=== PATIENT | male | born 1990 | race Caucasian/White ===

== ENCOUNTER 2017-12-02 14:47 | Inpatient (IN) | payer OTHER ==
[2017-12-02 14:55] VITALS: BMI 31.4
--- NOTE | 2017-12-02 15:10 | HP ---
CIWA Score - CIWA Score Nausea/Vomitin Muscle Tremors: 3 Anxiety: 3 Agitation: 3 Paroxysmal Sweats: 2 Orientation: 0-Oriented Tacttile Disturbances: 2-Mild Itch/Numbness/Burn Auditory Disturbances: 2-Mild Harshness/Frighten Visual Disturbances: 0-None Headache: 2-Mild CIWA-Ar Total Score: 20 Admission ROS [facility] - HPI Chief Complaint: I NEED HELP TO STOP USING XANAX,ALSO HEROIN DEPENDENCE,MARIJUANA DEPENDENCE, MMTP 65 MGS/DAY,LAST MEDICATED TODAY, SEIZURE WITHDRAWAL LAST 2015 NICOTINE DEPENDENCE DEPRESSION HISTORY OF HYPOTHYROIDISM AT [facility] DID NOT TAKE MEDICATION FOR 20 YEARS LOW BACK PAIN LONGES PERIOD OF SOBRIETY 7 MONTHS Allergies/Adverse Reactions: Allergies Allergy/AdvReac Type Severity Reaction Status Date / Time No Known Allergies Allergy Verified 12/02/17 15:00 History of Present Illness: THIS 27 YEARS OLD MALE WITH XANAX,MARIJUANA DEPENDENCE,ALSO HEROIN ABUSED,ON MMTP 65 MGS/DAY,LAST MEDICATE TODAY FOR DETOX MENTIONED Exam Limitations: No Limitations - Ebola screening Have you traveled outside of the country in the last 21 days: No Have you had contact with anyone from an Ebola affected area: No Have you been sick,other than usual withdrawal symptoms: No Do you have a fever: No - Review of Systems Constitutional: Chills, Loss of Appetite, Malaise, Night Sweats, Changes in sleep, Weakness EENT: reports: Tearing, Nose Congestion Respiratory: reports: No Symptoms reported Cardiac: reports: No Symptoms Reported GI: reports: Diarrhea, Nausea, Vomiting, Abdominal cramping : reports: No Symptoms Reported Musculoskeletal: reports: Back Pain, Joint Pain, Muscle Pain, Joint Stiffness Integumentary: reports: Dryness Neuro: reports: Headache, Tremors Endocrine: reports: No Symptoms Reported Hematology: reports: No Symptoms Reported Psychiatric: reports: No Sypmtoms Reported, Judgement Intact, Mood/Affect Appropiate, Anxious, Depressed Patient History - Patient Medical History Hx Anemia: No Hx Asthma: No Hx Chronic Obstructive Pulmonary Disease (COPD): No Hx Cancer: No Hx Cardiac Disorders: No Hx Congestive Heart Failure: No Hx Hypertension: No Hx Hypercholesterolemia: No Hx Pacemaker: No HX Cerebrovascular Accident: No Hx Seizures: Yes (WITHDRAWAL 2015) Hx Dementia: No Hx Diabetes: No Hx Gastrointestinal Disorders: No Hx Liver Disease: No Hx Genitourinary Disorders: No Hx Sexually Transmitted Disorders: No Hx Renal Disease (ESRD): No Hx Thyroid Disease: Yes (HYPOTHYROIDISM AT CHILDHOOD) Hx Human Immunodeficiency Virus (HIV): No (LAST 05/25 NEGATIVE) Hx Hepatitis C: No Hx Depression: Yes Hx Suicide Attempt: No Hx Bipolar Disorder: No Hx Schizophrenia: No Other Medical History: NO SUICIDAL,NO HOMICIDAL - Patient Surgical History Past Surgical History: No - PPD History Previous Implant?: Yes Documented Results: Positive w/o proof Implanted On Prior R Admission?: No PPD to be Administered?: No - Smoking Cessation Smoking history: Current every day smoker Have you smoked in the past 12 months: Yes Aproximately how many cigarettes per day: 10 Cigars Per Day: 0 Hx Chewing Tobacco Use: No Initiated information on smoking cessation: Yes 'Breaking Loose' booklet given: 12/02/17 - Substance & Tx. History Hx Alcohol Use: No Hx Substance Use: Yes Substance Use Type: Heroin, Marijuana, Tranquilizers Hx Substance Use Treatment: Yes (05/25 [facility]) - Substances Abused Alprazolam (Xanax) Route: Oral Frequency: Daily Amount used: 4-5mg Age of first use: 20 Date of Last Use: 12/01/17 Heroin Route: Inhalation Frequency: Daily Amount used: 5-10 bags Age of first use: 22 Date of Last Use: 12/01/17 Marijuana/Hashish Route: Smoking Frequency: Daily Amount used: 2 joints Age of first use: 15 Date of Last Use: 12/01/17 Family Disease History - Family Disease History Family History: Denies Admission Physical Exam [facility] - Vital Signs Vital Signs: Vital Signs - 24 hr 12/02/17 14:48 Temperature 98.2 F Pulse Rate 55 L Respiratory 16 Rate Blood Pressure 135/66 - Physical General Appearance: Yes: Moderate Distress, Tremorous, Irritable, Sweating, Anxious HEENTM: Yes: Normal ENT Inspection, ISSAC, Pharynx Normal Respiratory: Yes: Lungs Clear, Normal Breath Sounds, No Respiratory Distress Neck: Yes: Within Normal Limits, Supple, Trachea in good position Breast: Yes: Within Normal Limits Cardiology: Yes: Within Normal Limits, Regular Rhythm, Regular Rate, S1, S2 Abdominal: Yes: Within Normal Limits, Normal Bowel Sounds, Non Tender, Flat, Soft Genitourinary: Yes: Within Normal Limits Back: Yes: Normal Inspection, Muscle Spasm Musculoskeletal: Yes: full range of Motion, Back pain, Muscle Pain Extremities: Yes: Normal Range of Motion, Tremors Neurological: Yes: material requirements worker II-XII NML intact, Fully Oriented, Alert, Motor Strength 5/5 Integumentary: Yes: Dry Lymphatic: Yes: Within Normal Limits - Diagnostic (1) Uncomplicated sedative, hypnotic or anxiolytic withdrawal Current Visit: Yes Status: Acute (2) Cannabis dependence Current Visit: Yes Status: Acute (3) Heroin abuse Current Visit: Yes Status: Acute (4) Methadone maintenance therapy patient Current Visit: Yes Status: Chronic (5) Nicotine dependence Current Visit: Yes Status: Acute Qualifiers: Nicotine product type: cigarettes Substance use status: uncomplicated Qualified Code(s): F17.210 - Nicotine dependence, cigarettes, uncomplicated (6) Insomnia secondary to depression with anxiety Current Visit: Yes Status: Acute (7) Hypothyroidism Current Visit: Yes Status: Acute Qualifiers: Hypothyroidism type: unspecified Qualified Code(s): E03.9 - Hypothyroidism , unspecified (8) Drug withdrawal seizure Current Visit: Yes Status: Acute Cleared for Admission [facility] - Detox or Rehab [facility] Level of Care: Medically Managed Detox Regimen/Protocol: Valium [facility] Breath Alcohol Content Breath Alcohol Content: 0 Urine Drug Screen - Results Drug Screen Negative: No Urine Drug Screen Results: THC-Marijuana, OPI-Opiates, BZO-Benzodiazepines, MTD- Methadone
[2017-12-02] MEDS ORDERED: MAGNESIUM CITRATE 300 ML BOTTLE PO PRN (15:25)
[2017-12-02] MEDS ORDERED: P-EPHED 60MG/TRIPROLIDI 2.5MG TABLET PO PRN (15:25)
[2017-12-02] MEDS ORDERED: MAG HYDROX/AL HYDROX/SIMETH 30 ML UNIT-DOSE CUP PO PRN (15:25)
[2017-12-02] MEDS ORDERED: hydrOXYzine PAMOATE 50 MG CAPSULE (FP) PO PRN (15:25)
[2017-12-02] MEDS ORDERED: ACETAMINOPHEN 325 MG TABLET (FP) PO PRN (15:25)
[2017-12-02] MEDS ORDERED: LOPERAMIDE HCL 2 MG CAPSULE PO PRN (15:25)
[2017-12-02] MEDS ORDERED: guaiFENesin/D-METHORPHAN HB 10 ML UNIT-DOSE CUPS PO PRN (15:25)
[2017-12-02] MEDS ORDERED: MENTHOL/PHENOL 1 EACH UD MM PRN (15:25)
[2017-12-02] MEDS ORDERED: diazePAM 5 MG TABLET PO ONE (17:00)
[2017-12-02] MEDS: NICOTINE 21 MG/24 HOURS TOPICAL PATCH TD SCH (18:27)
[2017-12-02] MEDS: IBUPROFEN 400 MG TABLET (FP) PO PRN (20:54)
[2017-12-02 21:23] LABS: URINE APPEARANCE CLEAR; URINE BILIRUBIN NEGATIVE (<2.0 mg/dL); URINE BLOOD NEGATIVE (NEGATIVE); URINE COLOR LTYELLOW; URINE GLUCOSE (UA) NEGATIVE (NEGATIVE); URINE KETONE NEGATIVE (NEGATIVE); URINE LEUK ESTERASE NEGATIVE (NEGATIVE); URINE NITRITE NEGATIVE (NEGATIVE); URINE PROTEIN NEGATIVE (NEGATIVE); URINE UROBILINOGEN NEGATIVE mg/dL (0.2-1.0)
[2017-12-02] MEDS ORDERED: MELATONIN 5 MG TABLETS PO PRN (22:00)
[2017-12-02] MEDS: THIAMINE HCL 100 MG TABLET (FP) PO SCH (22:19)
[2017-12-02] MEDS: diazePAM 5 MG TABLET PO SCH (22:20)
[2017-12-03] MEDS: diazePAM 5 MG TABLET PO SCH ×3 (05:31→22:41)
[2017-12-03] MEDS ORDERED: METHADONE HCL 10 MG TABLET PO SCH (07:00)
[2017-12-03] MEDS ORDERED: METHADONE HCL 5 MG TABLET ONE (07:44)
[2017-12-03] MEDS ORDERED: METHADONE HCL 10 MG TABLET ONE (07:44)
[2017-12-03] MEDS ORDERED: METHADONE HCL 40 MG DISPERSABLE TABLET ONE (07:45)
[2017-12-03] MEDS: METHADONE 40 MG, METHADONE 20 MG, METHADONE 5 MG PO SCH (07:48)
[2017-12-03 10:18] LABS: CHLORIDE 103 mmol/L (98-107); POTASSIUM 4.1 mmol/L (3.5-5.1); SGOT/AST 17 U/L (15-37); SGPT/ALT 24 U/L (12-78); SODIUM 137 mmol/L (136-145)
[2017-12-03 10:32] LABS: HEMATOCRIT 44.8 % (35.4-49); MCH 29.6 pg (25.7-33.7); MCHC 33.4 g/dl (32.0-35.9); MEAN CELL VOLUME 88.8 fl (80-96); MEAN PLT VOLUME 10.1 fl (7.5-11.1); PLATELET COUNT 196 K/MM3 (134-434); RBC 5.05 M/mm3 (4.00-5.60); WHITE BLOOD COUNT 6.2 K/mm3 (4.0-10.0)
[2017-12-03 10:38] LABS: ALBUMIN 3.6 g/dl (3.4-5.0); ALK PHOS 78 U/L (45-117); ANION GAP 7 (8-16); BILIRUBIN,TOTAL 0.4 mg/dL (0.2-1.0); BLOOD UREA NITROGEN 15 mg/dL (7-18); CALCIUM 8.8 mg/dL (8.5-10.1); CO2 27 mmol/L (21-32); GLUCOSE,RANDOM 90 mg/dL (74-106); TOT PROT 7.2 g/dl (6.4-8.2)
--- NOTE | 2017-12-03 10:51 | CONSULT ---
[facility] Psychiatric Consult - Data Date of interview: 12/03/17 Admission source: [facility] Identifying data: First admission to [facility] for this 27 y/o [place]-born male seeking detox treatment on for heroin,xanax and marihuana dependence.Patient is single without children,domiciled,unemployed and supported by relatives. Substance Abuse History: Dependence on heroin,cannabis and xanax is confirmed by patient in this interview.Details in current [facility] report : Smoking Cessation. Smoking history: Current every day smoker. Have you smoked in the past 12 months: Yes. Aproximately how many cigarettes per day: 10. Cigars Per Day: 0. Hx Chewing Tobacco Use: No. Initiated information on smoking cessation: Yes. 'Breaking Loose' booklet given: 12/02/17. - Substance & Tx. History. Hx Alcohol Use: No. Hx Substance Use: Yes. Substance Use Type: Heroin, Marijuana , Tranquilizers. Hx Substance Use Treatment: Yes (05/25 [facility]) Medical History: History of withdrawal-related seizures and hypothyroidism ( childhood). Psychiatric History: No reported history of psychiatric hospitalizations.Patient is diagnosed with MDD and Anxiety Disorder.Prescribed remeron 15 mg/hs + gabapentin (dose not recalled).[facility].Mr Melo denies history of suicide attempts. Physical/Sexual Abuse/Trauma History: Patient denies. Additional Comment: Urine Drug Screen Results: THC-Marijuana, OPI-Opiates, BZO- Benzodiazepines, MTD-Methadone.Noted. Mental Status Exam - Mental Status Exam Alert and Oriented to: Time, Place, Person Cognitive Function: Good Patient Appearance: Well Groomed Mood: Hopeful, Euthymic Affect: Appropriate, Normal Range Patient Behavior: Fatigued, Cooperative Speech Pattern: Clear, Appropriate Voice Loudness: Normal Thought Process: Intact, Goal Oriented Thought Disorder: Not Present Hallucinations: Denies Suicidal Ideation: Denies Homicidal Ideation: Denies Insight/Judgement: Poor Sleep: Poorly, Difficulty falling asleep Appetite: Good Muscle strength/Tone: Normal Gait/Station: Normal Psychiatric Findings - Problem List ([place] 1, 2,3) (1) Opioid dependence on agonist therapy Current Visit: Yes Status: Acute (2) Uncomplicated sedative, hypnotic or anxiolytic withdrawal Current Visit: Yes Status: Acute (3) Cannabis dependence Current Visit: Yes Status: Acute (4) Nicotine dependence Current Visit: Yes Status: Acute Qualifiers: Nicotine product type: cigarettes Substance use status: uncomplicated Qualified Code(s): F17.210 - Nicotine dependence, cigarettes, uncomplicated (5) Insomnia Current Visit: Yes Status: Acute - Initial Treatment Plan Initial Treatment Plan: Psychoeducation.Sleep hygiene.Detoxification in progress.Medications : remeron 15 mg po hs + gabapentin 100 mg po tid.Side effects/benefits are discussed with patient.Mr Melo has expressed his agreement to this careplan.Observation.
--- NOTE | 2017-12-03 10:53 | EKG ---
Test Reason : Blood Pressure : / mmHG Vent. Rate : 049 BPM Atrial Rate : 049 BPM P-R Int : 148 ms QRS Dur : 090 ms QT Int : 414 ms P-R-T Axes : 028 075 033 degrees QTc Int : 373 ms SINUS BRADYCARDIA OTHERWISE NORMAL ECG NO PREVIOUS ECGS AVAILABLE Confirmed by MAHSA RESTREPO MD ([id number]) on 12/03/2017 10:52:41 AM Referred By: Confirmed By:MAHSA RESTREPO MD
[2017-12-03] MEDS: diazePAM 5 MG TABLET PO PRN (10:55)
[2017-12-03] MEDS: MAGNESIUM HYDROX 2400MG/30ML ORAL SUSPENSION 30 ML CUP PO PRN (10:55)
[2017-12-03] MEDS: PRENATAL VITAMINS W/ FOLIC ACID TABLET (FP) PO SCH (10:55)
[2017-12-03] MEDS: NICOTINE 21 MG/24 HOURS TOPICAL PATCH TD SCH (10:56)
--- NOTE | 2017-12-03 13:02 | PN ---
[facility] CIWA - CIWA Score Nausea/Vomitin-No Nausea/No Vomiting Muscle Tremors: 3 Anxiety: 3 Agitation: 2 Paroxysmal Sweats: 3 Orientation: 0-Oriented Tacttile Disturbances: 2-Mild Itch/Numbness/Burn Auditory Disturbances: 0-None Visual Disturbances: 2-Mild Sensitivity Headache: 0-None Present CIWA-Ar Total Score: 15 S Progress Note (SOAP) Subjective: Sweating, Anxious, Constipation, Tremors. Objective: PATIENT A & O X 3, OBSERVED AMBULATING ON UNIT. NO ACUTE DISTRESS. 12/03/17 13:02 Vital Signs Temperature 99.3 F 12/03/17 09:25 Pulse Rate 74 12/03/17 09:25 Respiratory Rate 20 12/03/17 09:25 Blood Pressure 122/78 12/03/17 09:25 O2 Sat by Pulse Oximetry (%) Laboratory Tests 12/02/17 12/03/17 12/03/17 20:00 07:30 07:30 WBC 6.2 RBC 5.05 Hgb 15.0 Hct 44.8 MCV 88.8 MCH 29.6 MCHC 33.4 RDW 14.0 Plt Count 196 MPV 10.1 Sodium Potassium Chloride Carbon Dioxide Anion Gap BUN Creatinine Creat Clearance w eGFR Random Glucose Calcium Total Bilirubin AST ALT Alkaline Phosphatase Total Protein Albumin TSH Urine Color Ltyellow Urine Appearance Clear Urine pH 6.0 Ur Specific [place] 1.013 Urine Protein Negative Urine Glucose (UA) Negative Urine Ketones Negative Urine Blood Negative Urine Nitrite Negative Urine Bilirubin Negative Urine Urobilinogen Negative Ur Leukocyte Esterase Negative RPR Titer HIV 1&2 Antibody Screen Negative HIV P24 Antigen Negative 12/03/17 12/03/17 07:30 07:30 WBC RBC Hgb Hct MCV MCH MCHC RDW Plt Count MPV Sodium 137 Potassium 4.1 Chloride 103 Carbon Dioxide 27 Anion Gap 7 L BUN 15 Creatinine 1.0 Creat Clearance w eGFR > 60 Random Glucose 90 Calcium 8.8 Total Bilirubin 0.4 AST 17 ALT 24 Alkaline Phosphatase 78 Total Protein 7.2 Albumin 3.6 TSH 0.59 Urine Color Urine Appearance Urine pH Ur Specific [place] Urine Protein Urine Glucose (UA) Urine Ketones Urine Blood Urine Nitrite Urine Bilirubin Urine Urobilinogen Ur Leukocyte Esterase RPR Titer Nonreactive HIV 1&2 Antibody Screen HIV P24 Antigen labs noted. Assessment: 12/03/17 13:02 WITHDRAWAL SYMPTOMS. Plan: CONTINUE DETOX. INCREASE DAILY PO FLUID INTAKE. PRN MOM FOR CONSTIPATION.
[2017-12-03] MEDS: GABAPENTIN 100 MG CAPSULE (FP) PO SCH ×2 (15:33→22:41)
[2017-12-03] MEDS: MIRTAZAPINE 15 MG TABLET (FP) PO SCH (22:41)
[2017-12-03] MEDS: THIAMINE HCL 100 MG TABLET (FP) PO SCH (22:41)
[2017-12-04] MEDS ORDERED: METHADONE HCL 10 MG TABLET ONE (04:52)
[2017-12-04] MEDS ORDERED: METHADONE HCL 5 MG TABLET ONE (04:52)
[2017-12-04] MEDS ORDERED: METHADONE HCL 40 MG DISPERSABLE TABLET ONE (04:53)
[2017-12-04] MEDS: GABAPENTIN 100 MG CAPSULE (FP) PO SCH ×3 (05:26→22:52)
[2017-12-04] MEDS: METHADONE 40 MG, METHADONE 20 MG, METHADONE 5 MG PO SCH (05:26)
[2017-12-04] MEDS: diazePAM 5 MG TABLET PO PRN (07:59)
[2017-12-04] MEDS: diazePAM 5 MG TABLET PO SCH ×2 (09:25→22:52)
[2017-12-04] MEDS: NICOTINE 21 MG/24 HOURS TOPICAL PATCH TD SCH (09:25)
[2017-12-04] MEDS: PRENATAL VITAMINS W/ FOLIC ACID TABLET (FP) PO SCH (09:25)
[2017-12-04] MEDS: IBUPROFEN 400 MG TABLET (FP) PO PRN (09:26)
[2017-12-04] MEDS: MAGNESIUM HYDROX 2400MG/30ML ORAL SUSPENSION 30 ML CUP PO PRN ×2 (09:28→17:44)
--- NOTE | 2017-12-04 11:11 | PN ---
[facility] CIWA - CIWA Score Nausea/Vomitin-No Nausea/No Vomiting Muscle Tremors: None Anxiety: 4-Mod. Anxious/Guarded Agitation: 1-Slight > Activity Paroxysmal Sweats: 2 Orientation: 0-Oriented Tacttile Disturbances: 2-Mild Itch/Numbness/Burn Auditory Disturbances: 0-None Visual Disturbances: 2-Mild Sensitivity Headache: 0-None Present CIWA-Ar Total Score: 11 S Progress Note (SOAP) Subjective: Constipation, Interrupted Sleep, Constipation. Objective: PATIENT A & O X 3, OBSERVED AMBULATING ON UNIT. NO ACUTE DISTRESS. 12/04/17 11:09 Vital Signs Temperature 100.2 F H 12/04/17 10:00 Pulse Rate 75 12/04/17 10:00 Respiratory Rate 18 12/04/17 10:00 Blood Pressure 119/75 12/04/17 10:00 O2 Sat by Pulse Oximetry (%) Laboratory Tests 12/02/17 12/03/17 12/03/17 20:00 07:30 07:30 WBC 6.2 RBC 5.05 Hgb 15.0 Hct 44.8 MCV 88.8 MCH 29.6 MCHC 33.4 RDW 14.0 Plt Count 196 MPV 10.1 Sodium Potassium Chloride Carbon Dioxide Anion Gap BUN Creatinine Creat Clearance w eGFR Random Glucose Calcium Total Bilirubin AST ALT Alkaline Phosphatase Total Protein Albumin TSH Urine Color Ltyellow Urine Appearance Clear Urine pH 6.0 Ur Specific [place] 1.013 Urine Protein Negative Urine Glucose (UA) Negative Urine Ketones Negative Urine Blood Negative Urine Nitrite Negative Urine Bilirubin Negative Urine Urobilinogen Negative Ur Leukocyte Esterase Negative RPR Titer HIV 1&2 Antibody Screen Negative HIV P24 Antigen Negative 12/03/17 12/03/17 07:30 07:30 WBC RBC Hgb Hct MCV MCH MCHC RDW Plt Count MPV Sodium 137 Potassium 4.1 Chloride 103 Carbon Dioxide 27 Anion Gap 7 L BUN 15 Creatinine 1.0 Creat Clearance w eGFR > 60 Random Glucose 90 Calcium 8.8 Total Bilirubin 0.4 AST 17 ALT 24 Alkaline Phosphatase 78 Total Protein 7.2 Albumin 3.6 TSH 0.59 Urine Color Urine Appearance Urine pH Ur Specific [place] Urine Protein Urine Glucose (UA) Urine Ketones Urine Blood Urine Nitrite Urine Bilirubin Urine Urobilinogen Ur Leukocyte Esterase RPR Titer Nonreactive HIV 1&2 Antibody Screen HIV P24 Antigen LABS NOTED. Assessment: 12/04/17 11:09 WITHDRAWAL SYMPTOMS. Plan: CONTINUE DETOX. METAMUCIL FOR CONSTIPATION (PATIENT REQUESTS). INCREASE DAILY PO FLUID INTAKE.
[2017-12-04] MEDS: PSYLLIUM 5.85 GM PACKET PO SCH ×2 (11:46→22:52)
[2017-12-04] MEDS: NICOTINE POLACRILEX 2 MG GUM BC PRN ×2 (12:18→17:45)
[2017-12-04] MEDS: MIRTAZAPINE 15 MG TABLET (FP) PO SCH (22:52)
[2017-12-04] MEDS: THIAMINE HCL 100 MG TABLET (FP) PO SCH (22:52)
[2017-12-05] MEDS ORDERED: METHADONE HCL 10 MG TABLET ONE (05:05)
[2017-12-05] MEDS ORDERED: METHADONE HCL 40 MG DISPERSABLE TABLET ONE (05:05)
[2017-12-05] MEDS ORDERED: METHADONE HCL 5 MG TABLET ONE (05:05)
[2017-12-05] MEDS: METHADONE 40 MG, METHADONE 20 MG, METHADONE 5 MG PO SCH (05:35)
[2017-12-05] MEDS: GABAPENTIN 100 MG CAPSULE (FP) PO SCH ×3 (05:36→22:10)
[2017-12-05] MEDS: diazePAM 5 MG TABLET PO SCH ×2 (10:44→22:09)
[2017-12-05] MEDS: PRENATAL VITAMINS W/ FOLIC ACID TABLET (FP) PO SCH (10:44)
[2017-12-05] MEDS: PSYLLIUM 5.85 GM PACKET PO SCH ×2 (10:45→22:12)
[2017-12-05] MEDS: NICOTINE 21 MG/24 HOURS TOPICAL PATCH TD SCH (10:45)
--- NOTE | 2017-12-05 12:02 | PN ---
[facility] Progress Note (SOAP) Subjective: Interrupted Sleep, Constipation. Objective: PATIENT A & O X 3, OBSERVED AMBULATING ON UNIT. NO ACUTE DISTRESS. 12/05/17 12:00 Vital Signs Temperature 96.9 F L 12/05/17 09:21 Pulse Rate 72 12/05/17 09:21 Respiratory Rate 18 12/05/17 09:21 Blood Pressure 106/73 12/05/17 09:21 O2 Sat by Pulse Oximetry (%) Laboratory Tests 12/02/17 12/03/17 12/03/17 20:00 07:30 07:30 WBC 6.2 RBC 5.05 Hgb 15.0 Hct 44.8 MCV 88.8 MCH 29.6 MCHC 33.4 RDW 14.0 Plt Count 196 MPV 10.1 Sodium Potassium Chloride Carbon Dioxide Anion Gap BUN Creatinine Creat Clearance w eGFR Random Glucose Calcium Total Bilirubin AST ALT Alkaline Phosphatase Total Protein Albumin TSH Urine Color Ltyellow Urine Appearance Clear Urine pH 6.0 Ur Specific [place] 1.013 Urine Protein Negative Urine Glucose (UA) Negative Urine Ketones Negative Urine Blood Negative Urine Nitrite Negative Urine Bilirubin Negative Urine Urobilinogen Negative Ur Leukocyte Esterase Negative RPR Titer HIV 1&2 Antibody Screen Negative HIV P24 Antigen Negative 12/03/17 12/03/17 07:30 07:30 WBC RBC Hgb Hct MCV MCH MCHC RDW Plt Count MPV Sodium 137 Potassium 4.1 Chloride 103 Carbon Dioxide 27 Anion Gap 7 L BUN 15 Creatinine 1.0 Creat Clearance w eGFR > 60 Random Glucose 90 Calcium 8.8 Total Bilirubin 0.4 AST 17 ALT 24 Alkaline Phosphatase 78 Total Protein 7.2 Albumin 3.6 TSH 0.59 Urine Color Urine Appearance Urine pH Ur Specific [place] Urine Protein Urine Glucose (UA) Urine Ketones Urine Blood Urine Nitrite Urine Bilirubin Urine Urobilinogen Ur Leukocyte Esterase RPR Titer Nonreactive HIV 1&2 Antibody Screen HIV P24 Antigen LABS NOTED. Assessment: 12/05/17 12:01 WITHDRAWAL SYMPTOMS. Plan: CONTINUE DETOX. INCREASE DAILY PO FLUID INTAKE. PATIENT REPORTING MINIMAL EFFECT FOR CONSTIPATION FROM METAMUCIL AND MOM. PRN [place] ADVISED.
[2017-12-05] MEDS: diazePAM 5 MG TABLET PO PRN (14:16)
[2017-12-05] MEDS: NICOTINE POLACRILEX 2 MG GUM BC PRN (14:17)
[2017-12-05] MEDS: IBUPROFEN 400 MG TABLET (FP) PO PRN (17:24)
[2017-12-05] MEDS: THIAMINE HCL 100 MG TABLET (FP) PO SCH (22:09)
[2017-12-05] MEDS: MIRTAZAPINE 15 MG TABLET (FP) PO SCH (22:10)
[2017-12-06] MEDS ORDERED: METHADONE HCL 10 MG TABLET ONE (04:51)
[2017-12-06] MEDS ORDERED: METHADONE HCL 40 MG DISPERSABLE TABLET ONE (04:52)
[2017-12-06] MEDS ORDERED: METHADONE HCL 5 MG TABLET ONE (04:52)
[2017-12-06] MEDS: METHADONE 40 MG, METHADONE 20 MG, METHADONE 5 MG PO SCH (05:49)
[2017-12-06] MEDS: GABAPENTIN 100 MG CAPSULE (FP) PO SCH (05:49)
[2017-12-06 06:04] VITALS: BP 98/51; PULSE 49; TEMP 96.7
[2017-12-06] MEDS ORDERED: diazePAM 5 MG TABLET PO SCH (10:00)
[2017-12-06] MEDS: PRENATAL VITAMINS W/ FOLIC ACID TABLET (FP) PO SCH (11:25)
[2017-12-06] MEDS: PSYLLIUM 5.85 GM PACKET PO SCH (11:25)
[2017-12-06] MEDS: NICOTINE 21 MG/24 HOURS TOPICAL PATCH TD SCH (11:25)
--- NOTE | 2017-12-06 18:10 | PN ---
[facility] Progress Note (SOAP) Subjective: Patient denies any current Detox symptoms and reports that he is feeling well overall. Objective: PATIENT A & O X 3, OBSERVED AMBULATING ON UNIT. NO ACUTE DISTRESS. 12/06/17 18:09 Vital Signs Temperature 96.7 F L 12/06/17 06:04 Pulse Rate 49 L 12/06/17 06:04 Respiratory Rate 18 12/06/17 06:30 Blood Pressure 98/51 12/06/17 06:04 O2 Sat by Pulse Oximetry (%) Laboratory Tests 12/02/17 12/03/17 12/03/17 20:00 07:30 07:30 WBC 6.2 RBC 5.05 Hgb 15.0 Hct 44.8 MCV 88.8 MCH 29.6 MCHC 33.4 RDW 14.0 Plt Count 196 MPV 10.1 Sodium Potassium Chloride Carbon Dioxide Anion Gap BUN Creatinine Creat Clearance w eGFR Random Glucose Calcium Total Bilirubin AST ALT Alkaline Phosphatase Total Protein Albumin TSH Urine Color Ltyellow Urine Appearance Clear Urine pH 6.0 Ur Specific [place] 1.013 Urine Protein Negative Urine Glucose (UA) Negative Urine Ketones Negative Urine Blood Negative Urine Nitrite Negative Urine Bilirubin Negative Urine Urobilinogen Negative Ur Leukocyte Esterase Negative RPR Titer HIV 1&2 Antibody Screen Negative HIV P24 Antigen Negative 12/03/17 12/03/17 07:30 07:30 WBC RBC Hgb Hct MCV MCH MCHC RDW Plt Count MPV Sodium 137 Potassium 4.1 Chloride 103 Carbon Dioxide 27 Anion Gap 7 L BUN 15 Creatinine 1.0 Creat Clearance w eGFR > 60 Random Glucose 90 Calcium 8.8 Total Bilirubin 0.4 AST 17 ALT 24 Alkaline Phosphatase 78 Total Protein 7.2 Albumin 3.6 TSH 0.59 Urine Color Urine Appearance Urine pH Ur Specific [place] Urine Protein Urine Glucose (UA) Urine Ketones Urine Blood Urine Nitrite Urine Bilirubin Urine Urobilinogen Ur Leukocyte Esterase RPR Titer Nonreactive HIV 1&2 Antibody Screen HIV P24 Antigen LABS NOTED. Assessment: 12/06/17 18:09 COMPLETION OF DETOX REGIMEN. Plan: PATIENT SCHEDULED FOR DISCHARGE FROM DETOX TODAY. PATIENT WILL GO HOME FOR WEEKEND, THEN WILL GO ON TO [facility] FOR AFTERCARE ON 12/08/2017.
--- NOTE | 2017-12-06 18:13 | DS ---
[facility] Detox Discharge Summary Admission Date: 12/02/17 Discharge Date: 12/06/17 - History Present History: Cannabis Dependence, Opioid Dependence, Sedative Dependence, MMTP Additional Comments: PATIENT GOING HOME FOR WEEKEND, THEN WILL GO ON TO [facility] [place] FOR [place]CARE ON 12/08/2017. PATIENT WAS DISCHARGED FROM DETOX UNIT IN STABLE MEDICAL CONDITION. Pertinent Past History: Hypothryoidism, MMTP, Nicotine Dependence, Depression, Anxiety, Insomnia. - Physical Exam Results Vital Signs: Vital Signs Temperature 96.7 F L 12/06/17 06:04 Pulse Rate 49 L 12/06/17 06:04 Respiratory Rate 18 12/06/17 06:30 Blood Pressure 98/51 12/06/17 06:04 O2 Sat by Pulse Oximetry (%) Pertinent Admission Physical Exam Findings: WITHDRAWAL SYMPTOMS. Laboratory Tests 12/02/17 12/03/17 12/03/17 20:00 07:30 07:30 WBC 6.2 RBC 5.05 Hgb 15.0 Hct 44.8 MCV 88.8 MCH 29.6 MCHC 33.4 RDW 14.0 Plt Count 196 MPV 10.1 Sodium Potassium Chloride Carbon Dioxide Anion Gap BUN Creatinine Creat Clearance w eGFR Random Glucose Calcium Total Bilirubin AST ALT Alkaline Phosphatase Total Protein Albumin TSH Urine Color Ltyellow Urine Appearance Clear Urine pH 6.0 Ur Specific [place] 1.013 Urine Protein Negative Urine Glucose (UA) Negative Urine Ketones Negative Urine Blood Negative Urine Nitrite Negative Urine Bilirubin Negative Urine Urobilinogen Negative Ur Leukocyte Esterase Negative RPR Titer HIV 1&2 Antibody Screen Negative HIV P24 Antigen Negative 12/03/17 12/03/17 07:30 07:30 WBC RBC Hgb Hct MCV MCH MCHC RDW Plt Count MPV Sodium 137 Potassium 4.1 Chloride 103 Carbon Dioxide 27 Anion Gap 7 L BUN 15 Creatinine 1.0 Creat Clearance w eGFR > 60 Random Glucose 90 Calcium 8.8 Total Bilirubin 0.4 AST 17 ALT 24 Alkaline Phosphatase 78 Total Protein 7.2 Albumin 3.6 TSH 0.59 Urine Color Urine Appearance Urine pH Ur Specific [place] Urine Protein Urine Glucose (UA) Urine Ketones Urine Blood Urine Nitrite Urine Bilirubin Urine Urobilinogen Ur Leukocyte Esterase RPR Titer Nonreactive HIV 1&2 Antibody Screen HIV P24 Antigen LABS NOTED. - Treatment Hospital Course: Detox Protocol Followed, Detoxed Safely, Responded well, Discharged Condition Good, Rehab Referral Accepted Patient has Accepted a Rehab Referral to: [facility] ([place] - Medication Discharge Medications: Ambulatory Orders Gabapentin [Neurontin -] 100 mg PO TID 12/02/17 Mirtazapine [Remeron -] 15 mg PO HS 12/02/17 - Diagnosis (1) Cannabis dependence Status: Acute (2) Hypothyroidism Status: Acute Qualifiers: Hypothyroidism type: unspecified Qualified Code(s): E03.9 - Hypothyroidism , unspecified (3) Methadone maintenance therapy patient Status: Chronic (4) Nicotine dependence Status: Acute Qualifiers: Nicotine product type: cigarettes Substance use status: uncomplicated Qualified Code(s): F17.210 - Nicotine dependence, cigarettes, uncomplicated (5) Uncomplicated sedative, hypnotic or anxiolytic withdrawal Status: Acute (6) Heroin abuse Status: Acute (7) Insomnia secondary to depression with anxiety Status: Acute (8) Insomnia Status: Acute Qualifiers: Insomnia type: unspecified Qualified Code(s): G47.00 - Insomnia, unspecified - AMA Did Patient Leave Against Medical Advice: No
== END 2017-12-06 11:26 | disposition home or self-care (01) | DRG 773 ==
LOC: YASAS 14:47 → Y3N 16:23
PROVIDERS: ADMIT Internal Medicine; ATTEND Internal Medicine
PROC: HZ2ZZZZ Detoxification Services for Substance Abuse Treatment (ICD-10-PCS; principal; 2017-12-02)
DX: F13.230 Sedative, hypnotic or anxiolytic dependence with withdrawal, uncomplicated (principal); F11.20 Opioid dependence, uncomplicated; F12.20 Cannabis dependence, uncomplicated; F17.210 Nicotine dependence, cigarettes, uncomplicated; F51.05 Insomnia due to other mental disorder; E03.9 Hypothyroidism, unspecified; Z86.69 Personal history of other diseases of the nervous system and sense organs
CPT/HCPCS: 36415; 71045-TC-FY; 80053; 81003; 84443; 85027; 86593; 87389; 93005; 93010

== ENCOUNTER 2021-11-01 12:37 | Inpatient (IN) | payer OTHER ==
[2021-11-01] MEDS ORDERED: MENTHOL/PHENOL 1 EACH UD MM PRN (13:07)
[2021-11-01] MEDS ORDERED: MAG HYDROX/AL HYDROX/SIMETH 30 ML UNIT-DOSE CUP PO PRN (13:07)
[2021-11-01] MEDS ORDERED: diazePAM 5 MG TABLET PO PRN ×2 (13:07→15:00)
[2021-11-01] MEDS ORDERED: ACETAMINOPHEN 325 MG TABLET (FP) PO PRN ×2 (13:07)
[2021-11-01] MEDS ORDERED: BISMUTH SUBSALICYLATE 262 MG/15 ML BTL PO PRN (13:07)
[2021-11-01] MEDS ORDERED: LOPERAMIDE HCL 2 MG CAPSULE PO PRN (13:07)
[2021-11-01] MEDS ORDERED: ONDANSETRON *ODT* 4 MG TABLET SL PRN (13:07)
[2021-11-01] MEDS ORDERED: MAGNESIUM CITRATE 300 ML BOTTLE PO PRN (13:07)
[2021-11-01 13:29] VITALS: BMI 27.9
[2021-11-01] MEDS: hydrOXYzine PAMOATE 25 MG CAPSULE (FP) PO SCH ×3 (15:25→23:52)
[2021-11-01] MEDS: NICOTINE 14 MG/24 HOURS TOPICAL PATCH TD SCH (15:25)
[2021-11-01] MEDS: PRENATAL VITAMINS W/ FOLIC ACID TABLET (FP) PO SCH (15:26)
[2021-11-01] MEDS ORDERED: diazePAM 5 MG TABLET PO SCH (17:00)
[2021-11-01] MEDS: MELATONIN 5 MG TABLETS PO SCH (22:41)
[2021-11-01] MEDS: THIAMINE HCL 100 MG TABLET (FP) PO SCH (22:41)
[2021-11-01] MEDS: MIRTAZAPINE 15 MG TABLET (FP) PO SCH (22:41)
[2021-11-01] MEDS: diazePAM 5 MG TABLET PO SCH (22:42)
[2021-11-01] MEDS: MAGNESIUM HYDROX 2400MG/30ML ORAL SUSPENSION 30 ML CUP PO PRN (22:44)
[2021-11-02] MEDS: hydrOXYzine PAMOATE 25 MG CAPSULE (FP) PO SCH ×5 (05:26→22:41)
[2021-11-02] MEDS: diazePAM 5 MG TABLET PO SCH ×4 (05:26→22:42)
[2021-11-02] MEDS: PRENATAL VITAMINS W/ FOLIC ACID TABLET (FP) PO SCH (10:06)
[2021-11-02] MEDS: METHOCARBAMOL 500 MG TABLET PO PRN ×2 (10:06→22:43)
[2021-11-02] MEDS: NICOTINE 10 MG CARTRIDGE (INHALER) IH PRN (10:07)
[2021-11-02] MEDS: NICOTINE 14 MG/24 HOURS TOPICAL PATCH TD SCH (10:07)
[2021-11-02] MEDS: methaDONE HCL 10 MG TABLET PO SCH (10:08)
[2021-11-02] MEDS: MAGNESIUM HYDROX 2400MG/30ML ORAL SUSPENSION 30 ML CUP PO PRN ×3 (10:12→22:43)
[2021-11-02 11:56] LABS: HEMATOCRIT 37.8 % (35.4-49); HEMOGLOBIN 12.6 GM/dL (11.7-16.9); MCH 30.5 pg (25.7-33.7); MCHC 33.2 g/dl (32.0-35.9); MEAN CELL VOLUME 91.9 fl (80-96); MEAN PLT VOLUME 9.6 fl (7.5-11.1); PLATELET COUNT 164 10^3/uL (134-434); RBC 4.11 M/mm3 (4.00-5.60); WHITE BLOOD COUNT 4.8 K/mm3 (4.0-10.0)
[2021-11-02 12:05] LABS: ALBUMIN 3.2 g/dl (3.4-5.0)
[2021-11-02 12:06] LABS: BLOOD UREA NITROGEN 17.4 mg/dL (7-18); CALCIUM 8.1 mg/dL (8.5-10.1)
[2021-11-02 12:08] LABS: CREATININE 0.9 mg/dL (0.55-1.3)
[2021-11-02 12:09] LABS: BILIRUBIN,TOTAL 0.1 mg/dL (0.2-1)
[2021-11-02] MEDS ORDERED: PSYLLIUM 5.85 GM PACKET PO PRN (12:43)
[2021-11-02] MEDS: CALCIUM CARBONATE 650 MG TABLET PO SCH (15:20)
[2021-11-02] MEDS: IBUPROFEN 400 MG TABLET (FP) PO PRN (18:24)
[2021-11-02] MEDS: MELATONIN 5 MG TABLETS PO SCH (22:41)
[2021-11-02] MEDS: THIAMINE HCL 100 MG TABLET (FP) PO SCH (22:41)
[2021-11-02] MEDS: MIRTAZAPINE 15 MG TABLET (FP) PO SCH (22:41)
[2021-11-03] MEDS ORDERED: diazePAM 5 MG TABLET PO SCH (06:00)
[2021-11-03] MEDS: hydrOXYzine PAMOATE 25 MG CAPSULE (FP) PO SCH ×5 (06:10→22:18)
[2021-11-03] MEDS: diazePAM 5 MG TABLET PO SCH ×3 (06:10→22:17)
[2021-11-03] MEDS: methaDONE HCL 10 MG TABLET PO SCH (06:11)
[2021-11-03] MEDS: IBUPROFEN 400 MG TABLET (FP) PO PRN ×2 (06:14→22:18)
[2021-11-03] MEDS: MAGNESIUM HYDROX 2400MG/30ML ORAL SUSPENSION 30 ML CUP PO PRN (06:16)
[2021-11-03] MEDS: PRENATAL VITAMINS W/ FOLIC ACID TABLET (FP) PO SCH (10:23)
[2021-11-03] MEDS: NICOTINE 14 MG/24 HOURS TOPICAL PATCH TD SCH (10:23)
[2021-11-03] MEDS: NICOTINE 10 MG CARTRIDGE (INHALER) IH PRN (10:23)
[2021-11-03] MEDS: CALCIUM CARBONATE 650 MG TABLET PO SCH (10:23)
[2021-11-03] MEDS: METHOCARBAMOL 500 MG TABLET PO PRN ×2 (10:24→17:57)
[2021-11-03] MEDS: MIRTAZAPINE 15 MG TABLET (FP) PO SCH (22:17)
[2021-11-03] MEDS: MELATONIN 5 MG TABLETS PO SCH (22:17)
[2021-11-03] MEDS: THIAMINE HCL 100 MG TABLET (FP) PO SCH (22:18)
[2021-11-04] MEDS ORDERED: diazePAM 5 MG TABLET PO SCH (06:00)
[2021-11-04] MEDS ORDERED: cloNIDine HCL 0.1 MG TABLET PO ONE ×3 (06:00→19:11)
[2021-11-04] MEDS: diazePAM 5 MG TABLET PO SCH ×2 (06:01→18:16)
[2021-11-04] MEDS: IBUPROFEN 400 MG TABLET (FP) PO PRN ×2 (06:01→22:29)
[2021-11-04] MEDS: methaDONE HCL 10 MG TABLET PO SCH (06:01)
[2021-11-04] MEDS: hydrOXYzine PAMOATE 25 MG CAPSULE (FP) PO SCH ×5 (06:03→22:28)
[2021-11-04 06:38] LABS: SARS-CoV-2 NAA Not Detected (Not Detected)
[2021-11-04] MEDS: NICOTINE 10 MG CARTRIDGE (INHALER) IH PRN (10:37)
[2021-11-04] MEDS: PRENATAL VITAMINS W/ FOLIC ACID TABLET (FP) PO SCH (10:37)
[2021-11-04] MEDS: CALCIUM CARBONATE 650 MG TABLET PO SCH (10:37)
[2021-11-04] MEDS: METHOCARBAMOL 500 MG TABLET PO PRN ×2 (10:38→18:19)
[2021-11-04] MEDS: NICOTINE 14 MG/24 HOURS TOPICAL PATCH TD SCH (10:50)
[2021-11-04] MEDS: MIRTAZAPINE 15 MG TABLET (FP) PO SCH (22:28)
[2021-11-04] MEDS: MELATONIN 5 MG TABLETS PO SCH (22:28)
[2021-11-04] MEDS: THIAMINE HCL 100 MG TABLET (FP) PO SCH (22:28)
[2021-11-05] MEDS ORDERED: diazePAM 5 MG TABLET PO ONE ×2 (06:00)
[2021-11-05] MEDS: methaDONE HCL 10 MG TABLET PO SCH (06:04)
[2021-11-05] MEDS: hydrOXYzine PAMOATE 25 MG CAPSULE (FP) PO SCH ×2 (06:04→09:40)
[2021-11-05] MEDS: IBUPROFEN 400 MG TABLET (FP) PO PRN (06:05)
[2021-11-05 09:38] VITALS: BP 119/71; PULSE 86; TEMP 98.2
[2021-11-05] MEDS: CALCIUM CARBONATE 650 MG TABLET PO SCH (09:40)
[2021-11-05] MEDS: NICOTINE 14 MG/24 HOURS TOPICAL PATCH TD SCH (09:41)
== END 2021-11-05 09:50 | disposition home or self-care (01) | DRG 773 ==
LOC: YASAS 12:37 → Y6N 14:31
PROVIDERS: ADMIT Allergy & Immunology; ATTEND Allergy & Immunology
PROC: HZ2ZZZZ Detoxification Services for Substance Abuse Treatment (ICD-10-PCS; principal; 2021-11-01)
DX: F13.230 Sedative, hypnotic or anxiolytic dependence with withdrawal, uncomplicated (principal); F11.20 Opioid dependence, uncomplicated; F12.20 Cannabis dependence, uncomplicated; F17.210 Nicotine dependence, cigarettes, uncomplicated; F19.282 Other psychoactive substance dependence with psychoactive substance-induced sleep disorder; F34.1 Dysthymic disorder; E58 Dietary calcium deficiency; K59.03 Drug induced constipation
CPT/HCPCS: 36415; 71046-TC-FY; 80053; 85027; 86780; C9803; J0735; U0003; U0005